=== PATIENT | male | born 1985 | race Caucasian/White ===

== ENCOUNTER 2022-10-22 12:12 | Outpatient (RCR) | payer MEDICAID, SELFPAY | END 2022-10-22 12:15 | disposition home or self-care (01) | LOC: PT 12:12 | PROVIDERS: PCP Family Medicine; Visit Provider Nurse Practitioner | DX: M79.642 Pain in left hand (principal); T23.002A Burn of unspecified degree of left hand, unspecified site, initial encounter | CPT/HCPCS: 97162 ==

== ENCOUNTER → 2023-03-13 08:17 | Outpatient (CLI) | payer MEDICAID, SELFPAY ==
--- NOTE | 2023-03-13 08:22 | US_ITS ---
FINAL REPORT CLINICAL HISTORY: RUQ PAIN COMPARISON: None FINDINGS: Sonographic images of the right upper quadrant were obtained. The pancreas is partially obscured. The liver is fatty infiltrated. The gallbladder appears normal without evidence of gallstones. Sludge is noted in the gallbladder. There is no evidence of biliary ductal dilatation.The common duct measures 4mm. Limited images of the right kidney are unremarkable. IMPRESSION: Fatty liver. Sludge in the gallbladder Reviewed, Interpreted and Dictated by Dino Chou MD Transcribed by Cheyanne Turner Authenticated and . [facility]
== END ==
PROVIDERS: PCP Nurse Practitioner; Visit Provider Nurse Practitioner Family
DX: R10.11 Right upper quadrant pain (principal)
CPT/HCPCS: 76705